=== PATIENT | male | born 1970 | race Caucasian/White ===

== ENCOUNTER 2016-06-26 11:00 | Emergency (ER) | payer OTHER ==
[~2016-06-26] VITALS: Ht 170.2 cm; Wt 99.8 kg
[2016-06-26] MEDS ORDERED: ROBAXIN-750750 MG PO (11:35)
[2016-06-26 11:42] VITALS: BP 122/84
[2016-06-26 11:43] VITALS: BP 122/84
--- NOTE | 2016-06-27 13:29 | Emergency Room Report ---
History of Present Illness General Chief Complaint: Lower Back Pain or Injury Source: Patient Present Illness HPI Patient is a 46-year-old male presented after increased low back pain. Patient gradual onset of symptoms of the past 2 days. Patient had recently been lifting heavy luggage and subsequently began having soreness in his right buttock area. He denied any bowel or bladder dysfunction. He denied any radiation to his legs. He denied abdominal pain. He had not been having any fever or dysuria. Patient denies any other symptoms. 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 Allergies: Coded Allergies: No Known Allergies (Unverified , 06/26/16) Patient History Past Medical History: see triage record Reviewed Nursing Documentation: PMH: Agreed, PSxH: Agreed Nursing Documentation-PMH Past Medical History: No Stated History Review of Systems All Other Systems: negative except mentioned in HPI Physical Exam Vital Signs Date Time Temp Pulse Resp B/P Pulse Ox O2 Delivery O2 Flow Rate FiO2 06/26/16 11:11 97.9 91 20 122/84 100 Room Air Sp02 EP Interpretation: normal General Appearance: well appearing, no apparent distress, alert, GCS 15 Head: normocephalic, atraumatic ENT: hearing grossly normal, normal voice Neck: full range of motion, supple Respiratory: no respiratory distress, speaking full sentences Gastrointestinal: normal inspection Musculoskeletal: normal inspection, back normal, digits/nails normal, no calf tenderness, other - straight leg raise negative bilaterally Neurologic: normal inspection, alert, oriented x3, responsive, manager business information III-XII nml as tested, normal gait Psychiatric: mood/affect normal Skin: no rash Medical Decision Making Diagnostic Impression: Primary Impression: Lumbar strain ER Course Patient presented for low back pain. Differential diagnosis included but was not limited to herniated disc, cauda equina syndrome, abdominal aortic aneurysm , perforated ulcer, spinal epidural abscess, spinal stenosis, lumbar fracture, metastatic lesion, pyelonephritis. Patient's benign exam and does not appear to require any further imaging or laboratory testing at this time. The patient appears to have musculoskeletal low back pain. Patient given prescription for muscle relaxants. He has no evidence of abscess and has no tenderness to percussion of his lumbar spine. The patient is advised to follow up with primary care doctor in 1-2 days. Patient is advised to return if any worsening condition or if any changes in status that are concerning. Last Vital Signs Date Time Temp Pulse Resp B/P Pulse Ox O2 Delivery O2 Flow Rate FiO2 06/26/16 11:43 97.9 20 122/84 100 Room Air 06/26/16 11:11 91 Status: improved Disposition: HOME, SELF-CARE Condition: Stable Scripts Methocarbamol* (ROBAXIN-750*) 750 Mg Tablet 750 MG PO TID, #21 TAB 0 Refills Prov: Guido Grant 06/26/16 Referrals: NOT CHOSEN IPA/MD,REFERRING Departure Forms: Return to Work Return to Work in (Days): 3 Patient Instructions: Lumbosacral Strain Guido Grant Jun 27, 2016 13:28
== END 2016-06-26 11:47 | disposition home or self-care (01) ==
LOC: EMR 11:43
DX: S39.012A Strain of muscle, fascia and tendon of lower back, initial encounter (principal); X50.0XXA Overexertion from strenuous movement or load, initial encounter; Y92.9 Unspecified place or not applicable; Y99.8 Other external cause status
CPT/HCPCS: 99283

== ENCOUNTER 2016-06-29 09:20 | Emergency (ER) | payer OTHER ==
[~2016-06-29] VITALS: Ht 172.7 cm; Wt 98.9 kg
[~2016-06-29 09:20] MED LIST: ROBAXIN-750750 MG PO
[2016-06-29] MEDS ORDERED: IBUPROFEN600 MG ORAL (09:46)
[2016-06-29] MEDS ORDERED: CYCLOBENZAPRINE10 MG ORAL (09:46)
[2016-06-29 09:55] VITALS: BP 153/98
--- NOTE | 2016-06-29 10:53 | Emergency Room Report ---
History of Present Illness General Chief Complaint: Back Pain-No Injury Source: Patient Present Illness HPI 46-year-old male presents to ED complaining of back pain. States he injured his back lifting heavy boxes at work a few days ago. Was seen here on 06/26. Have lumbar strain and was prescribed Robaxin. Patient stating the medication is not helping. Notes continued pain and lower back, worse with bending and twisting. Pain as throbbing, 8/10, nonradiating. No other aggravating relieving factors. Denies any other associated symptoms Allergies: Coded Allergies: No Known Allergies (Unverified , 06/26/16) Patient History Past Medical History: none Past Surgical History: none Pertinent Family History: none Social History: Denies: alcohol use, drug use, smoking Immunizations: UTD Reviewed Nursing Documentation: PMH: Agreed, PSxH: Agreed Nursing Documentation-PMH Past Medical History: No Stated History Review of Systems All Other Systems: negative except mentioned in HPI Physical Exam Vital Signs Date Time Temp Pulse Resp B/P Pulse Ox O2 Delivery O2 Flow Rate FiO2 06/29/16 09:30 98.8 91 18 162/91 98 Room Air Sp02 EP Interpretation: reviewed, normal General Appearance: no apparent distress, alert, GCS 15, non-toxic Head: normocephalic Eyes: bilateral eye PERRL, bilateral eye normal inspection ENT: normal ENT inspection Neck: normal inspection Respiratory: normal inspection Cardiovascular #1: normal inspection Gastrointestinal: normal inspection Rectal: deferred Genitourinary: no vertebral tenderness Musculoskeletal: other - paraspinal lumbar tenderness Neurologic: alert, oriented x3, responsive, motor strength/tone normal, sensory intact, speech normal Psychiatric: normal inspection Skin: normal inspection Lymphatic: normal inspection Medical Decision Making Diagnostic Impression: Primary Impression: Lumbar strain Qualified Codes: S39.012D - Strain of muscle, fascia and tendon of lower back , subsequent encounter ER Course Hospital Course 46-year-old male presents ED complaining of lower back pain. Differential diagnoses include: pyelonephritis, kidney stone, muscle strain, Lspine fracture Clinical course Patient placed on stretcher. After initial history, physical exam reveals a middle-age male in no acute distress. There is no vertebral body tenderness, appreciated paraspinal pain in the lumbar region Patient was prescribed Robaxin without relief. I reviewed [facility] patient does not have narcotic prescriptions filled I offered patient pain medications here but he declined. I will prescribe him Motrin and Flexeril Diagnosis - lumbar strain Stable and discharged to home with prescription for Motrin, Flexeril. Followup with PMD. Return to ED if symptoms recur or worsen Last Vital Signs Date Time Temp Pulse Resp B/P Pulse Ox O2 Delivery O2 Flow Rate FiO2 06/29/16 09:55 98 16 153/98 98 Room Air 06/29/16 09:55 97.9 Status: improved Disposition: HOME, SELF-CARE Condition: Stable Scripts Cyclobenzaprine Hcl* (FLEXERIL*) 10 Mg Tablet 10 MG ORAL TID Y for Muscle Spasm, #20 TAB Prov: THANIA GUTIERREZ M.D. 06/29/16 Ibuprofen* (MOTRIN*) 600 Mg Tablet 600 MG ORAL Q8H Y for For Pain, #30 TAB 0 Refills Prov: THANIA GUTIERREZ M.D. 06/29/16 Referrals: Thelma MIRANDA,REFERRING (PCP) Departure Forms: Return to Work Return to Work Date: Jul 01, 2016 Work Restrictions: No Heavy Lifting Patient Instructions: Back Pain, Adult THANIA GUTIERREZ M.D. Jun 29, 2016 10:53
== END 2016-06-29 09:55 | disposition home or self-care (01) ==
LOC: EMR 09:48
DX: S39.012D Strain of muscle, fascia and tendon of lower back, subsequent encounter (principal); X58.XXXD Exposure to other specified factors, subsequent encounter
CPT/HCPCS: 99284